=== PATIENT | male | born 1995 | race Caucasian/White ===

== ENCOUNTER 2016-11-19 23:34 | Emergency (ER) | payer OTHER ==
[~2016-11-19] VITALS: Ht 182.9 cm; Wt 106.6 kg
[2016-11-19 23:34] VITALS: BP_SYST 134
== END 2016-11-20 00:06 | disposition home or self-care (01) ==
LOC: SED 23:34
DX: T16.1XXA Foreign body in right ear, initial encounter (principal); W22.8XXA Striking against or struck by other objects, initial encounter; Y93.89 Activity, other specified; Y92.89 Other specified places as the place of occurrence of the external cause; Y99.8 Other external cause status
CPT/HCPCS: 99281

== ENCOUNTER 2016-11-20 23:54 | Emergency (ER) | payer OTHER ==
[~2016-11-20] VITALS: Ht 182.9 cm; Wt 106.6 kg
[2016-11-21 00:04] VITALS: BP_SYST 127
== END 2016-11-21 00:41 | disposition left against medical advice (07) ==
LOC: SED 23:54
DX: H92.01 Otalgia, right ear (principal); Z53.21 Procedure and treatment not carried out due to patient leaving prior to being seen by health care provider